=== PATIENT | female | born 1990 | race African-American/Black ===

== ENCOUNTER 2020-10-14 14:32 | Emergency (ER) | payer MEDICAID ==
[~2020-10-14] VITALS: Ht 167.6 cm; Wt 51.0 kg
[2020-10-14] MEDS ORDERED: ONDANSETRON HCL 4MG/2ML INJ IV STA (14:49)
[2020-10-14] MEDS ORDERED: ACETAMINOPHEN 325MG TABLET PO STA (14:49)
[2020-10-14] MEDS ORDERED: KETOROLAC 30MG/ML VIAL IV STA (14:49)
[2020-10-14] MEDS ORDERED: SODIUM CHLORIDE 0.9% 1000ML BAG (SEPSIS BOLUS) IV ONE (15:00)
[2020-10-14 15:40] LABS: CHLORIDE 111 mEq/L (98-107); HEMATOCRIT. 37.3 % (36.0-48.0); HEMOGLOBIN. 12.1 g/dL (12.0-16.0); MEAN CORPUSCULAR HEMOGLOBIN 29.5 pg (28.0-32.0); MEAN CORPUSCULAR VOLUME 90.7 fL (81.0-99.0); MEAN PLATELET VOLUME 9.5 fl (7.4-10.4); PLATELET 138 x1000/uL (130-400); RED BLOOD CELL COUNT 4.12 mill/uL (4.2-5.4)
[2020-10-14 15:45] LABS: INR 1.1; PROTHROMBIN TIME 11.5 sec (9.6-11.0)
[2020-10-14 15:52] LABS: HCG SCREEN NEGATIVE
[2020-10-14 16:50] LABS: PLATELET ESTIMATE NORMAL
[2020-10-14] MEDS ORDERED: LEVOFLOXACIN 750MG PREMIX 150 ML IV ONE (17:00)
[2020-10-14] MEDS ORDERED: LEVO750T46 PO (17:01)
[2020-10-14] MEDS ORDERED: TOPUD PO (17:01)
[2020-10-14] MEDS ORDERED: METR500T MT (17:01)
[2020-10-14] MEDS ORDERED: METRONIDAZOLE 500 MG PREMIX 100 ML IV ONE (17:15)
[2020-10-14 18:55] VITALS: BP 119/77
== END 2020-10-14 20:10 | disposition home or self-care (01) ==
LOC: ER 14:32
DX: N12 Tubulo-interstitial nephritis, not specified as acute or chronic (principal); K52.9 Noninfective gastroenteritis and colitis, unspecified; R00.0 Tachycardia, unspecified; E87.6 Hypokalemia; E83.51 Hypocalcemia; E86.0 Dehydration
CPT/HCPCS: 36415; 71045; 74176; 80053; 83605; 84145; 84484; 84703; 85025; 85610; 87040; 93005; 96361; 96365; 96368; 96375; 99285; J1885; J1956; J2405; J3490; J7030; Z7610; 96367